=== PATIENT | male | born 1955 | race Caucasian/White ===

== ENCOUNTER 2024-12-21 11:41 | Emergency (ER) | payer MEDICARE ==
[~2024-12-21] VITALS: Ht 182.9 cm; Wt 83.0 kg
[2024-12-21 11:49] VITALS: BP 191/109; PULSE 75; O2SAT 98
--- NOTE | 2024-12-21 13:06 | Physician Documentation ---
History of Present Illness ~ Chief Complaint: Neck pain Stated Complaint: NECK PAIN Time Seen by MD: 13:02 HPI Patient is seen today with complaints of acute on chronic neck pain. Patient states he just had steroid injections into his neck about four days ago in waited a couple of days and then went jet skiing yesterday and started having significant pain in his neck and states he needs an anti-inflammatory and possibly some steroid. Patient states he is from 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 Patient has no other concern or complaint at this time. Medication Reconciliation Allergies: Coded Allergies: No Known Allergies (Unverified , 12/21/24) Review of Systems Constitutional: Denies: chills, fever, weakness Eyes: Denies: pain, blurred vision ENT: Denies: ear pain, nose pain, throat pain, mouth pain Respiratory: Denies: cough, shortness of breath Cardiovascular: Denies: chest pain, palpitations Gastrointestinal: Denies: abdominal pain, nausea, vomiting Genitourinary: Denies: burning, dysuria Male Genitalia: Denies: penile discharge, testicular pain Neurological: Denies: headache, dizziness Musculoskeletal: Denies: pain, swelling Integumentary: Denies: rash, lesions Allergic/Immunologic: Denies: hives, itching Hematologic/Lymphatic: Denies: no symptoms reported Psychiatric: Denies: depression, anxiety Physical Exam Vital Signs: Temperature: 97.8, Source: Temporal, Heart Rate: 75, Respiratory Rate: 18, BP: 191/109, Pulse Oximetry: 98, Weight: 82.950 Physical Exam General: Awake and Alert, no acute distress. HEENT: Conjunctiva pink, Sclera clear, Mucus Membranes moist. Neck: Supple without masses and tenderness. Resp: Unlabored. Lungs clear to auscultation bilaterally. Heart: Regular Rate and rhythm, normal S1 and S2 without murmur, rub or gallop. Musculoskeletal: Patient on exam does have significant decreased range of motion of the cervical spine in all planes of motion. Patient is neurovascularly intact distally of bilateral upper and lower extremities. Motor function and strength intact distally. Extremities: No cyanosis,clubbing or edema. Skin: Warm and Dry. Progress Results/Orders Results/Orders Completed Orders - LEDY HANSEN Ketorolac Trometh 30mg/Ml Vial (Toradol (12/21/24 13:05) Triamcinolone Acet 40mg/Ml Inj (Kenalog- (12/21/24 13:05) Vital Signs 12/21/24 11:49 Temp 97.8 Pulse 75 Resp 18 B/P (MAP) 191/109 Pulse Ox 98 Medical Decision Making Findings Patient is seen today with complaints of acute on chronic neck pain. Patient states he just had steroid injections into his neck about four days ago in waited a couple of days and then went jet skiing yesterday and started having significant pain in his neck and states he needs an anti-inflammatory and possibly some steroid. Patient states he is from 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 Patient has no other concern or complaint at this time. Patient was given Kenalog 40 mg IM as well as Toradol 30 mg IM in the ED today. Prescription of Medrol Dosepak sent to patient's pharmacy. Patient will continue Tylenol and ibuprofen as needed for symptomatic relief. Follow up with primary care or insurance billing specialist as soon as possible in 3-5 days if no better or as needed sooner. Return to ED with any worsening, concerning or changing symptoms. Patient also given muscle relaxer sent to patient's pharmacy. Departure Disposition: 01 HOME / SELF CARE / HOMELESS Impression: Primary Impression: Neck pain Condition: Stable Discharge Instructions: Whiplash Additional Instructions: Patient was given Kenalog 40 mg IM as well as Toradol 30 mg IM in the ED today. Prescription of Medrol Dosepak sent to patient's pharmacy. Patient will continue Tylenol and ibuprofen as needed for symptomatic relief. Follow up with primary care or insurance billing specialist as soon as possible in 3-5 days if no better or as needed sooner. Return to ED with any worsening, concerning or changing symptoms. Patient also given muscle relaxer sent to patient's pharmacy. Referrals: NO PRIMARY CARE PROVIDER (PCP) Prescriptions Methylprednisolone (Medrol Dosepak) 4 Mg Tab.ds.pk 0 PO UD, #21 TAB 0 Refills take 6 Pills Day 1, 5 Pills Day 2, 4 Pills Day 3, 3 Pills Day 4, 2 Pills Day 5 and 1 pill Day 6 Prov: LEDY HANSEN PAC 12/21/24 Methocarbamol (Methocarbamol) 750 Mg Tablet 1 TAB PO Q8H for 15 Days, #45 TAB 0 Refills Prov: LEDY HANSEN PAC 12/21/24 Signature Scribe Signature: No scribe Attestation: No scribe LEDY HANSEN PAC Dec 21, 2024 13:06
[2024-12-21] MEDS ORDERED: METH-798 PO (13:45)
[2024-12-21] MEDS ORDERED: METH4TAB81 PO (13:45)
[2024-12-21 13:58] VITALS: RESP 16
[2024-12-21] MEDS: ketorolac trometh 30MG/ML vial 30 MG/ML VIAL IM STA (13:58)
[2024-12-21] MEDS: triamcinolone acetonide 40mg/ml inj IM ONE (13:59)
[2024-12-21 14:22] VITALS: TEMP 97.8
== END 2024-12-21 14:26 | disposition home or self-care (01) ==
LOC: ER 11:42
DX: M54.2 Cervicalgia (principal)
CPT/HCPCS: 96372; 99284; J1885; J3301